=== PATIENT | female | born 1950 | race Two or more races ===

== ENCOUNTER → 2016-11-12 | Outpatient (CLI) | payer BC ==
[~2016-11-12] MED LIST: NORVASC5 MG PO
== END | disposition disaster alternative care site (69) ==
LOC: GRAD 08:21
DX: R79.89 Other specified abnormal findings of blood chemistry (principal); I10 Essential (primary) hypertension; K76.89 Other specified diseases of liver; Z90.49 Acquired absence of other specified parts of digestive tract